=== PATIENT | female | born 1980 | race Caucasian/White ===

== ENCOUNTER 2017-09-20 12:17 | Emergency (ER) | payer OTHER ==
[2017-09-20 13:33] VITALS: BP 134/85
--- NOTE | 2017-09-20 13:59 | UC ---
Lower Extremity/Ankle HPI - HPI Summary HPI Summary: pt c/o gradual onset of pain and swelling to left lateral foot. 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 Denies injury or trauma. - History of Current Complaint Chief Complaint: UCLowerExtremity Stated Complaint: LEFT FOOT COMPLAINT Time Seen by Provider: 09/20/17 13:18 Hx Obtained From: Patient Hx Last Menstrual Period: 08/29/17 ?: No Onset/Duration: Gradual Onset, Lasting Days, Still Present Severity Initially: Mild Severity Currently: Moderate Pain Intensity: 3 Aggravating Factor(s): Standing, Ambulation, Other - palpation Alleviating Factor(s): Rest Able to Bear Weight: Yes - Risk Factors Gout Risk Factors: Obesity - Allergies/Home Medications Allergies/Adverse Reactions: Allergies Allergy/AdvReac Type Severity Reaction Status Date / Time No Known Allergies Allergy Verified 09/20/17 13:25 Home Medications: Home Medications Naproxen Sodium [Aleve] 440 mg PO ONCE PRN 09/20/17 [History Confirmed 09/20/17] PMH/Surg Hx/FS Hx/Imm Hx Previously Healthy: Yes - Surgical History Surgical History: Yes Surgery Procedure, Year, and Place: essure - Family History Known Family History: Positive: Cardiac Disease - Social History Occupation: Employed Full-time Lives: With Family Alcohol Use: None Substance Use Type: None Smoking Status (MU): Light Every Day Tobacco Smoker Type: Cigarettes Amount Used/How Often: 5 cigarettes daily Have You Smoked in the Last Year: No Review of Systems Constitutional: Negative Skin: Negative Eyes: Negative ENT: Negative Respiratory: Negative Cardiovascular: Negative Gastrointestinal: Negative Genitourinary: Negative Motor: Decreased ROM - pain with ROM left foot Neurovascular: Negative Musculoskeletal: Edema - left lateral proximal metatarsals, 4-5. Neurological: Negative Psychological: Negative Is Patient Immunocompromised?: No All Other Systems Reviewed And Are Negative: Yes Physical Exam Triage Information Reviewed: Yes Appearance: Well-Appearing Vital Signs: Initial Vital Signs Temp 98.3 F 09/20/17 13:26 Pulse 63 09/20/17 13:26 Resp 18 09/20/17 13:26 BP 134/85 09/20/17 13:26 Pulse Ox 100 09/20/17 13:26 Vital Signs Reviewed: Yes Eye Exam: Normal ENT Exam: Normal Dental Exam: Normal Neck exam: Normal Respiratory: Positive: No respiratory distress Musculoskeletal Exam: Other Musculoskeletal: Positive: ROM Limited @ - left lateral foot., Edema @ - left lateral foot proximal metarsals 4-5 Neurological Exam: Normal Psychological Exam: Normal Skin Exam: Normal Diagnostics - Radiology No standard instances Radiology Interpretation Completed By: Radiologist - IMPRESSION: NO ACUTE OSSEOUS INJURY. IF SYMPTOMS PERSIST, RECOMMEND REPEAT IMAGING. Lower Extremity Course/Dx - Differential Dx/Diagnosis Differential Diagnosis/HQI/PQRI: Bursitis - IMPRESSION: NO ACUTE OSSEOUS INJURY. IF SYMPTOMS PERSIST, RECOMMEND REPEAT IMAGING., Fracture (Closed), Tendonitis Provider Diagnoses: tendonitis, left foot. Discharge - Sign-Out/Discharge Documenting (check all that apply): Discharge - Discharge Plan Condition: Stable Disposition: HOME Patient Education Materials: Tendinitis (ED), R.I.C.E. Treatment (ED) Referrals: Omar Fine MD [Medical Doctor] - April Vaughn MD [Primary Care Provider] - If Needed Additional Instructions: Please follow up with your PCP or the orthopedic provider as needed. - Billing Disposition and Condition Condition: STABLE Disposition: HOME
--- NOTE | 2017-09-20 14:01 | RAD ---
HISTORY: Left foot pain and swelling COMPARISONS: None VIEWS: 3, Frontal, lateral, and oblique views of the left foot FINDINGS: BONE DENSITY: Normal. BONES: There is no displaced fracture. There is a nonaggressive bone cyst of the proximal phalanx of the first digit which is likely incidental to the history of left lateral foot pain. JOINTS: There is no arthropathy. ALIGNMENT: There is no dislocation. SOFT TISSUES: Unremarkable. OTHER FINDINGS: None. IMPRESSION: NO ACUTE OSSEOUS INJURY. IF SYMPTOMS PERSIST, RECOMMEND REPEAT IMAGING.
== END 2017-09-20 14:23 | disposition home or self-care (01) ==
LOC: UCCORT 12:17
DX: M77.52 Other enthesopathy of left foot and ankle (principal); X50.0XXA Overexertion from strenuous movement or load, initial encounter; Y93.01 Activity, walking, marching and hiking; Y92.89 Other specified places as the place of occurrence of the external cause; F17.210 Nicotine dependence, cigarettes, uncomplicated
CPT/HCPCS: 99202; G0463